=== PATIENT | female | born 1980 | race Caucasian/White ===

== ENCOUNTER → 2020-01-30 | Outpatient (CLI) | payer MEDICAID | END | disposition home or self-care (01) | LOC: LAB 10:49 | PROVIDERS: ATTEND Obstetrics & Gynecology | DX: Z01.812 Encounter for preprocedural laboratory examination (principal); Z20.828 Contact with and (suspected) exposure to other viral communicable diseases | CPT/HCPCS: C9803; U0003 ==

== ENCOUNTER 2020-02-02 07:20 | Day surgery (SDC) | payer MEDICAID ==
[~2020-02-02] VITALS: Ht 170.2 cm; Wt 99.8 kg
[2020-02-02 07:50] LABS: UCG SCREEN NEGATIVE
[2020-02-02 07:56] LABS: CLARITY URINE CLEAR (CLEAR); COLOR URINE DK YELLOW (YELLOW); KETONES URINE TRACE (NEGATIVE); LEUKOCYTE ESTERASE URINE 1+ (NEGATIVE); NITRITE URINE NEGATIVE (NEGATIVE); OCCULT BLOOD URINE NEGATIVE (NEGATIVE); PROTEIN URINE TRACE (NEGATIVE); SPECIFIC GRAVITY URINE 1.028 (1.005-1.030)
[2020-02-02] MEDS ORDERED: LACTATED RINGERS 1,000 ML IV SCH (08:00)
[2020-02-02 08:12] LABS: BASOPHILS % 1.2 % (0.0-2.0); HEMATOCRIT. 31.7 % (36.0-48.0); HEMOGLOBIN. 10.2 g/dL (12.0-16.0); LYMPHOCYTES % 22.3 % (20.0-50.0); MEAN CORPUSCULAR HEMOGLOBIN 23.2 pg (28.0-32.0); MEAN CORPUSCULAR VOLUME 72.3 fL (81.0-99.0); MEAN PLATELET VOLUME 8.2 fl (7.4-10.4); MONOCYTES % 7.6 % (2.0-8.0); NEUTROPHILS % 66.9 % (40.0-76.0); PLATELET 267 x1000/uL (130-400); RED BLOOD CELL COUNT 4.38 mill/uL (4.2-5.4); RED CELL DISTRIBUTION WIDTH 16.8 % (11.6-14.6)
[2020-02-02 08:18] LABS: CHLORIDE 110 mEq/L (98-107)
[2020-02-02 08:25] LABS: PARTIAL THROMBOPLASTIN TIME 27.7 sec (23.4-31.0); PROTHROMBIN TIME 10.4 sec (9.6-11.0)
[2020-02-02] MEDS ORDERED: BUPIVACAINE HCL/PF 0.5% (5MG/ML) 10ML ONE (09:48)
[2020-02-02] MEDS ORDERED: VASOPRESSIN 20 UNIT/ML 1ML ONE (09:48)
[2020-02-02] MEDS ORDERED: PROPOFOL 200MG/20ML VIAL IV ONE (09:57)
[2020-02-02] MEDS ORDERED: ROCURONIUM BROMIDE 10MG/ML VIAL 5ML IV ONE (09:57)
[2020-02-02] MEDS ORDERED: FENTANYL CITRATE/PF 50MCG/ML 2ML VIAL ONE (09:57)
[2020-02-02] MEDS ORDERED: NEOSTIGMINE METHYLSULFATE 1MG/ML 10 ML VIAL ONE (09:57)
[2020-02-02] MEDS ORDERED: LIDOCAINE HCL/PF 1% 10 MG/ML 5ML VIAL ONE (09:58)
[2020-02-02] MEDS ORDERED: SODIUM CHLORIDE 0.9% 10ML VIAL ONE (09:58)
[2020-02-02] MEDS ORDERED: GLYCOPYRROLATE 0.2 MG/ML 2ML VIAL ONE (09:58)
[2020-02-02] MEDS ORDERED: CEFAZOLIN SODIUM 1000MG/VIAL ONE (09:58)
[2020-02-02] MEDS ORDERED: MIDAZOLAM HCL 2 MG/2 ML VIAL ONE (09:58)
[2020-02-02] MEDS ORDERED: ONDANSETRON HCL 4MG/2ML INJ ONE (10:03)
[2020-02-02] MEDS ORDERED: SKIN ADHESIVE 0.7 GM EA TOP ONE (11:08)
[2020-02-02] MEDS ORDERED: MEPERIDINE HCL/PF 25MG/ML CPJ IV PRN (11:30)
[2020-02-02] MEDS ORDERED: METOCLOPRAMIDE HCL 10MG/2ML VIAL IV PRN (11:30)
[2020-02-02] MEDS ORDERED: ONDANSETRON HCL 4MG/2ML INJ IV PRN (11:30)
[2020-02-02] MEDS ORDERED: HYDROMORPHONE HCL/PF 2MG/ML CPJ IV PRN (11:30)
== END 2020-02-02 13:00 | disposition home or self-care (01) ==
LOC: OR 07:20
PROVIDERS: ATTEND Obstetrics & Gynecology
DX: Z30.2 Encounter for sterilization (principal); Z79.899 Other long term (current) drug therapy; Z88.8 Allergy status to other drugs, medicaments and biological substances; Z98.890 Other specified postprocedural states
CPT/HCPCS: 36415; 58661; 80048; 81003; 81025; 85025; 85610; 85730; 88302; J0690; J2250; J2405; J2704; J2710; J3010; J3490